=== PATIENT | female | born 1980 | race Caucasian/White ===

== ENCOUNTER 2019-03-16 17:14 | Emergency (ER) | payer MEDICAID ==
[~2019-03-16] VITALS: Ht 162.6 cm; Wt 81.8 kg
[2019-03-16 17:18] VITALS: BP 162/108
== END 2019-03-16 18:08 | disposition left against medical advice (07) ==
LOC: EMS 17:14
DX: R10.13 Epigastric pain (principal); R06.02 Shortness of breath; F17.210 Nicotine dependence, cigarettes, uncomplicated; Z53.21 Procedure and treatment not carried out due to patient leaving prior to being seen by health care provider

== ENCOUNTER → 2020-07-28 | Outpatient (CLI) | payer OTHER ==
[2020-07-29 02:06] LABS: RUBELLA AB IGG-REFLAB 2.18 index (Immune >0.99)
[2020-07-29 08:41] LABS: RUBEOLA (MEASLES) IGG >300.0 AU/mL (Immune >16.4)
== END | disposition home or self-care (01) ==
LOC: LABPV 08:47
PROVIDERS: ATTEND Internal Medicine
DX: Z02.1 Encounter for pre-employment examination (principal)
CPT/HCPCS: 86706; 86735; 86762; 86765; 86787